=== PATIENT | female | born 1955 | race Caucasian/White ===

== ENCOUNTER 2020-10-28 13:47 | Inpatient (IN) ==
[2020-10-28] MEDS ORDERED: methylPREDNISolone 125 MG in 0.9 % Sodium Chloride 100 ML IVPB ONE (14:01)
[2020-10-28] MEDS ORDERED: 0.9 % Sodium Chloride 1,000 ML IVC ONE ×2 (14:01→16:27)
[2020-10-28] MEDS ORDERED: Ipratropium/Albuterol Neb 3 ML IH ONE (14:01)
[2020-10-28 14:32] LABS: Basophils % 0.3 %; Eosinophils # 0.1 K/mcL (0.0-0.6); Hematocrit 42.9 % (35.3-44.9); Hemoglobin 13.8 g/dL (11.5-15.4); Immature Granulocytes % 0.2 % (0-4); Lymphocytes # 0.8 K/mcL (0.6-4.6); Lymphocytes % 8.1 %; Mean Corpuscular HGB Conc 32.2 g/dL (31.6-35.5); Mean Corpuscular Hemoglobin 29.4 pg (28.0-33.3); Mean Corpuscular Volume 91.3 fL (83.0-100.0); Mean Platelet Volume 9.8 fL (9.4-12.4); Monocytes # 0.6 K/mcL (0.0-1.3); Monocytes % 6.8 %; Neutrophils # 7.9 K/mcL (1.6-8.9); Platelet Count 332 K/mcL (140-400); Red Cell Distribution Width 12.6 % (11.5-14.5); Segmented Neutrophils % 83.6 %; White Blood Count 9.4 K/mcL (4.3-11.1)
[2020-10-28] MEDS ORDERED: methylPREDNISolone 125 MG/2 ML VIAL IVP ONE (14:34)
[2020-10-28 14:42] LABS: VBG HCO3 28 mEq/L (21-27); VBG PCO2 46 mmHg (41-51); VBG PH 7.39 pH Units (7.32-7.42); VBG PO2 254 mmHg (25-50)
[2020-10-28] MEDS ORDERED: Isovue-370 500 ML BOTTLE IVP ONE (14:43)
[2020-10-28 14:53] LABS: BUN/Creatinine Ratio 38 (6-26); Blood Urea Nitrogen 20 mg/dL (8-23); Calcium 9.7 mg/dL (8.6-10.3); Carbon Dioxide 27 mEq/L (23-29); Chloride 102 mEq/L (98-107); Glucose 124 mg/dL (70-105); Osmolality,Calculated 294 (280-300); Sodium 140 mEq/L (136-145); Troponin I < 0.03 ng/mL (< 0.04); eGFR For African Americans > 60 (> 60); eGFR For Non-African Americans > 60 (> 60)
[2020-10-28 15:47] LABS: Adenovirus Not Detected (Not Detect); Bordetella Pertussis Not Detected (Not Detect); Chlamydophila pneumoniae Not Detected (Not Detect); Coronavirus 229E Not Detected (Not Detect); Coronavirus HKU1 Not Detected (Not Detect); Coronavirus NL63 Not Detected (Not Detect); Coronavirus OC43 Not Detected (Not Detect); Human Metapneumovirus Not Detected (Not Detect); Human Rhinovirus/Enterovirus Not Detected (Not Detect); Influenza A Subtype 2009 H1 Not Detected (Not Detect); Influenza B Not Detected (Not Detect); Mycoplasma pneumoniae Not Detected (Not Detect); Parainfluenza Virus 1 Not Detected (Not Detect); Parainfluenza Virus 2 Not Detected (Not Detect); Parainfluenza Virus 3 Not Detected (Not Detect); Parainfluenza Virus 4 Not Detected (Not Detect); Respiratory Syncytial Virus Not Detected (Not Detect); SARS-CoV-2 Not Detected (Not Detect)
[2020-10-28] MEDS ORDERED: Piperacillin/Tazobactam 3.375 GM in 0.9 % Sodium Chloride Mini Bag 100 ML IVPB ONE (16:27)
[2020-10-28] MEDS ORDERED: Naloxone 0.4 MG/ML INJ IVP PRN (16:33)
[2020-10-28] MEDS ORDERED: Acetaminophen 325 MG TABLET PO PRN (16:33)
[2020-10-28] MEDS ORDERED: Mag Hydrox/Al Hydrox/Simeth 30 ML UDC PO PRN (16:33)
[2020-10-28] MEDS ORDERED: Ondansetron 4 MG/2 ML VIAL IVP PRN (16:33)
[2020-10-28] MEDS ORDERED: MOM Conc 10 ML UD.LIQ PO PRN (16:33)
[2020-10-28] MEDS ORDERED: Azithromycin 500 MG in 0.9 % Sodium Chloride 250 ML IVPB SCH (17:00)
[2020-10-28] MEDS ORDERED: *HR* Metoprolol 5 MG/5 ML VIAL IVP PRN (17:41)
[2020-10-28] MEDS: Ipratropium/Albuterol Neb 3 ML IH SCH ×2 (17:54→23:12)
[2020-10-28] MEDS ORDERED: Perflutren Lipid Microsphere 1.3 ML in 0.9 % Sodium Chloride 8.7 ML IVP PRN (18:14)
[2020-10-28] MEDS ORDERED: Dextrose Gel 15 GM/37.5 ML TUBE PO PRN ×2 (18:15)
[2020-10-28] MEDS ORDERED: *HR* Dextrose 50 % in Water (Vial) 50 ML VIAL IVP PRN (18:15)
[2020-10-28] MEDS ORDERED: D5% in Water 1,000 ML IVC PRN (18:15)
[2020-10-28] MEDS: MethylPREDNISolone 40 MG/ML VIAL IVP SCH ×2 (19:01→23:54)
[2020-10-28] MEDS: Insulin LISPRO 300 UNITS/3 ML VIAL SUBQ SCH (20:00)
[2020-10-28] MEDS ORDERED: Melatonin 3 MG TABLET PO PRN (21:00)
[2020-10-28] MEDS: Piperacillin/Tazobactam 3.375 GM in 0.9 % Sodium Chloride Mini Bag 100 ML IVPB SCH (23:55)
[2020-10-29 03:14] LABS: Hematocrit 38.8 % (35.3-44.9); Hemoglobin 12.3 g/dL (11.5-15.4); Mean Corpuscular HGB Conc 31.7 g/dL (31.6-35.5); Mean Corpuscular Hemoglobin 30.2 pg (28.0-33.3); Mean Corpuscular Volume 95.3 fL (83.0-100.0); Mean Platelet Volume 9.5 fL (9.4-12.4); Platelet Count 259 K/mcL (140-400); Red Blood Count 4.07 M/mcL (3.82-4.97); Red Cell Distribution Width 12.7 % (11.5-14.5)
[2020-10-29 03:17] LABS: White Blood Count 2.3 K/mcL (4.3-11.1)
[2020-10-29 03:38] LABS: BUN/Creatinine Ratio 38 (6-26); Blood Urea Nitrogen 20 mg/dL (8-23); Carbon Dioxide 24 mEq/L (23-29); Chloride 104 mEq/L (98-107); Glucose 171 mg/dL (70-105); Magnesium 1.9 mg/dL (1.6-2.6); Osmolality,Calculated 297 (280-300); Potassium 4.3 mEq/L (3.5-5.1); Sodium 140 mEq/L (136-145); eGFR For African Americans > 60 (> 60); eGFR For Non-African Americans > 60 (> 60)
[2020-10-29] MEDS: Ipratropium/Albuterol Neb 3 ML IH SCH (04:20)
[2020-10-29] MEDS: MethylPREDNISolone 40 MG/ML VIAL IVP SCH ×3 (05:28→21:19)
[2020-10-29] MEDS: Insulin LISPRO 300 UNITS/3 ML VIAL SUBQ SCH ×4 (09:18→20:22)
[2020-10-29] MEDS: Piperacillin/Tazobactam 3.375 GM in 0.9 % Sodium Chloride Mini Bag 100 ML IVPB SCH ×2 (09:18→16:54)
[2020-10-29] MEDS: Aspirin Enteric Coated 325 MG Tablet PO SCH (09:46)
[2020-10-29] MEDS: Budesonide/Formoterol 160/4.5 1 PUFF INH IH SCH ×2 (09:54→19:57)
[2020-10-29] MEDS: Levalbuterol Neb 1.25 MG/3 ML IH SCH ×3 (09:55→22:02)
[2020-10-29 10:57] LABS: Triiodothyronine (T3) Total 0.88 ng/mL (0.87-1.78)
[2020-10-29 16:27] LABS: ABG Base Excess 3 mEq/L (-2 to 3); ABG HCO3 29 mEq/L (21-27); ABG Oxygen Saturation 97 % (95-98); ABG PCO2 49 mmHg (35-45); ABG PH 7.38 pH Units (7.32-7.45); ABG PO2 95 mmHg (85-104); ABG TCO2 31 mEq/L (20-26)
[2020-10-29] MEDS: *HR* Heparin 5,000 UNIT/ML VIAL SQ SCH (16:56)
[2020-10-29] MEDS: Doxycycline 100 MG CAPSULE PO SCH (16:56)
[2020-10-30] MEDS: Piperacillin/Tazobactam 3.375 GM in 0.9 % Sodium Chloride Mini Bag 100 ML IVPB SCH ×2 (00:08→08:23)
[2020-10-30] MEDS: Levalbuterol Neb 1.25 MG/3 ML IH SCH ×4 (03:40→21:13)
[2020-10-30 04:17] LABS: Hematocrit 34.7 % (35.3-44.9); Hemoglobin 10.9 g/dL (11.5-15.4); Immature Granulocytes % 0.4 % (0-4); Lymphocytes # 0.3 K/mcL (0.6-4.6); Lymphocytes % 3.4 %; Mean Corpuscular HGB Conc 31.4 g/dL (31.6-35.5); Mean Corpuscular Hemoglobin 29.1 pg (28.0-33.3); Mean Corpuscular Volume 92.5 fL (83.0-100.0); Mean Platelet Volume 9.9 fL (9.4-12.4); Monocytes # 0.1 K/mcL (0.0-1.3); Monocytes % 0.9 %; Neutrophils # 7.7 K/mcL (1.6-8.9); Platelet Count 262 K/mcL (140-400); Red Blood Count 3.75 M/mcL (3.82-4.97); Red Cell Distribution Width 12.9 % (11.5-14.5); Segmented Neutrophils % 95.3 %
[2020-10-30 04:18] LABS: White Blood Count 8.1 K/mcL (4.3-11.1)
[2020-10-30] MEDS: *HR* Heparin 5,000 UNIT/ML VIAL SQ SCH ×2 (05:03→16:45)
[2020-10-30] MEDS: MethylPREDNISolone 40 MG/ML VIAL IVP SCH ×2 (05:03→07:46)
[2020-10-30] MEDS: Doxycycline 100 MG CAPSULE PO SCH ×2 (05:04→16:45)
[2020-10-30] MEDS: Aspirin Enteric Coated 325 MG Tablet PO SCH (08:26)
[2020-10-30] MEDS: Insulin LISPRO 300 UNITS/3 ML VIAL SUBQ SCH ×4 (08:26→21:29)
[2020-10-30] MEDS: Budesonide/Formoterol 160/4.5 1 PUFF INH IH SCH ×2 (10:45→21:13)
[2020-10-30] MEDS ORDERED: hydrOXYzine pamoate 25 MG CAPSULE PO PRN (13:33)
[2020-10-30] MEDS ORDERED: MethylPREDNISolone 40 MG/ML VIAL IVP SCH (18:00)
[2020-10-31] MEDS: Levalbuterol Neb 1.25 MG/3 ML IH SCH ×2 (03:49→08:18)
[2020-10-31 05:04] LABS: Hematocrit 39.4 % (35.3-44.9); Immature Granulocytes % 0.3 % (0-4); Lymphocytes # 0.7 K/mcL (0.6-4.6); Lymphocytes % 11.2 %; Mean Corpuscular HGB Conc 31.7 g/dL (31.6-35.5); Mean Corpuscular Volume 94.5 fL (83.0-100.0); Monocytes # 0.4 K/mcL (0.0-1.3); Monocytes % 6.1 %; Neutrophils # 5.1 K/mcL (1.6-8.9); Platelet Count 269 K/mcL (140-400); Red Blood Count 4.17 M/mcL (3.82-4.97); Red Cell Distribution Width 12.9 % (11.5-14.5); Segmented Neutrophils % 82.4 %; White Blood Count 6.2 K/mcL (4.3-11.1)
[2020-10-31 05:06] LABS: Hemoglobin 12.5 g/dL (11.5-15.4)
[2020-10-31 05:19] LABS: % Iron Saturation 20 % (15-50); Iron 87 mcg/dL (50-170); Transferrin 305 mg/dL (203-362)
[2020-10-31] MEDS: Doxycycline 100 MG CAPSULE PO SCH (05:19)
[2020-10-31] MEDS: *HR* Heparin 5,000 UNIT/ML VIAL SQ SCH (05:24)
[2020-10-31 05:46] LABS: Vitamin B12 > 1500 pg/mL (250-1100)
[2020-10-31 07:12] VITALS: BP 155/99
[2020-10-31] MEDS: Insulin LISPRO 300 UNITS/3 ML VIAL SUBQ SCH (07:48)
[2020-10-31] MEDS: Aspirin Enteric Coated 325 MG Tablet PO SCH (07:58)
[2020-10-31] MEDS: Budesonide/Formoterol 160/4.5 1 PUFF INH IH SCH (08:18)
[2020-10-31] MEDS ORDERED: predniSONE 20 MG TABLET PO SCH (09:00)
== END 2020-10-31 10:52 | disposition home or self-care (01) | DRG 190 ==
LOC: 3BNU 13:47 → EMEROOARM 13:47 → SUATTDRO 17:15 → 3BNU 17:57
PROVIDERS: ADMIT Internal Medicine; ATTEND Internal Medicine

== ENCOUNTER 2020-11-20 16:28 | Inpatient (IN) ==
[2020-11-20] MEDS ORDERED: methylPREDNISolone 125 MG/2 ML VIAL IVP ONE (16:43)
[2020-11-20] MEDS ORDERED: Ipratropium/Albuterol Neb 3 ML IH ONE (16:43)
[2020-11-20 17:01] LABS: Basophils % 0.3 %; Eosinophils # 0.1 K/mcL (0.0-0.6); Eosinophils % 0.7 %; Hematocrit 39.9 % (35.3-44.9); Hemoglobin 12.7 g/dL (11.5-15.4); Immature Granulocytes % 0.1 % (0-4); Lymphocytes # 0.9 K/mcL (0.6-4.6); Lymphocytes % 12.6 %; Mean Corpuscular HGB Conc 31.8 g/dL (31.6-35.5); Mean Corpuscular Hemoglobin 28.9 pg (28.0-33.3); Mean Corpuscular Volume 90.9 fL (83.0-100.0); Mean Platelet Volume 9.6 fL (9.4-12.4); Monocytes # 0.6 K/mcL (0.0-1.3); Monocytes % 8.5 %; Neutrophils # 5.7 K/mcL (1.6-8.9); Platelet Count 319 K/mcL (140-400); Red Blood Count 4.39 M/mcL (3.82-4.97); Red Cell Distribution Width 12.8 % (11.5-14.5); Segmented Neutrophils % 77.8 %; White Blood Count 7.3 K/mcL (4.3-11.1)
[2020-11-20 17:12] LABS: VBG HCO3 28 mEq/L (21-27); VBG PCO2 49 mmHg (41-51); VBG PH 7.37 pH Units (7.32-7.42); VBG PO2 253 mmHg (25-50)
[2020-11-20 17:21] LABS: Alanine Aminotransferase 17 Units/L (7-52); Albumin 3.7 g/dL (3.5-5.7); Albumin/Globulin Ratio 1.2 (1.1-2.2); Alkaline Phosphatase 89 Units/L (34-104); Aspartate Amino Transferase 15 Units/L (13-39); BUN/Creatinine Ratio 46 (6-26); Bilirubin,Total 0.3 mg/dL (0.3-1.0); Blood Urea Nitrogen 19 mg/dL (8-23); Calcium 9.6 mg/dL (8.6-10.3); Carbon Dioxide 30 mEq/L (23-29); Chloride 102 mEq/L (98-107); Glucose 154 mg/dL (70-105); Osmolality,Calculated 299 (280-300); Potassium 4.2 mEq/L (3.5-5.1); Sodium 142 mEq/L (136-145); Total Protein 6.7 g/dL (6.4-8.9); eGFR For African Americans > 60 (> 60); eGFR For Non-African Americans > 60 (> 60)
[2020-11-20 17:22] LABS: Troponin I < 0.03 ng/mL (< 0.04)
[2020-11-20] MEDS ORDERED: Ondansetron 4 MG/2 ML VIAL IVP PRN (18:04)
[2020-11-20] MEDS ORDERED: Acetaminophen 325 MG TABLET PO PRN (18:04)
[2020-11-20] MEDS ORDERED: Naloxone 0.4 MG/ML INJ IVP PRN (18:04)
[2020-11-20] MEDS ORDERED: Isovue-370 500 ML BOTTLE IVP ONE (18:06)
[2020-11-20] MEDS ORDERED: Benzonatate 100 MG CAPSULE PO PRN (18:10)
[2020-11-20] MEDS ORDERED: Ipratropium/Albuterol Neb 3 ML IH PRN (18:10)
[2020-11-20] MEDS ORDERED: Dextrose Gel 15 GM/37.5 ML TUBE PO PRN ×2 (18:16)
[2020-11-20] MEDS ORDERED: *HR* Dextrose 50 % in Water (Vial) 50 ML VIAL IVP PRN (18:16)
[2020-11-20] MEDS ORDERED: D5% in Water 1,000 ML IVC PRN (18:16)
[2020-11-20] MEDS ORDERED: Azithromycin 500 MG in 0.9 % Sodium Chloride 250 ML IVPB SCH (19:00)
[2020-11-20] MEDS: *HR* Heparin 5,000 UNIT/ML VIAL SQ SCH (21:47)
[2020-11-20] MEDS: Ipratropium/Albuterol Neb 3 ML IH SCH (22:01)
[2020-11-20] MEDS: Budesonide/Formoterol 160/4.5 1 PUFF INH IH SCH (23:48)
[2020-11-21 03:15] LABS: Hematocrit 39.3 % (35.3-44.9); Immature Granulocytes % 0.5 % (0-4); Lymphocytes # 0.2 K/mcL (0.6-4.6); Lymphocytes % 5.4 %; Mean Corpuscular HGB Conc 30.5 g/dL (31.6-35.5); Mean Corpuscular Hemoglobin 28.6 pg (28.0-33.3); Mean Corpuscular Volume 93.8 fL (83.0-100.0); Mean Platelet Volume 9.6 fL (9.4-12.4); Monocytes % 0.8 %; Neutrophils # 3.6 K/mcL (1.6-8.9); Platelet Count 293 K/mcL (140-400); Red Blood Count 4.19 M/mcL (3.82-4.97); Red Cell Distribution Width 12.9 % (11.5-14.5); Segmented Neutrophils % 93.3 %; White Blood Count 3.9 K/mcL (4.3-11.1)
[2020-11-21 03:27] LABS: BUN/Creatinine Ratio 43 (6-26); Blood Urea Nitrogen 20 mg/dL (8-23); Calcium 9.2 mg/dL (8.6-10.3); Carbon Dioxide 30 mEq/L (23-29); Chloride 103 mEq/L (98-107); Glucose 214 mg/dL (70-105); Magnesium 1.8 mg/dL (1.6-2.6); Osmolality,Calculated 305 (280-300); Potassium 4.8 mEq/L (3.5-5.1); Sodium 143 mEq/L (136-145); eGFR For African Americans > 60 (> 60); eGFR For Non-African Americans > 60 (> 60)
[2020-11-21 03:48] LABS: Platelet Estimate Normal (Normal)
[2020-11-21] MEDS: Ipratropium/Albuterol Neb 3 ML IH SCH ×4 (03:52→15:04)
[2020-11-21] MEDS: *HR* Heparin 5,000 UNIT/ML VIAL SQ SCH ×2 (06:16→17:22)
[2020-11-21] MEDS: MethylPREDNISolone 40 MG/ML VIAL IVP SCH ×2 (06:16→16:58)
[2020-11-21] MEDS: Insulin LISPRO 300 UNITS/3 ML VIAL SUBQ SCH ×3 (08:53→16:57)
[2020-11-21] MEDS ORDERED: Budesonide/Formoterol 80/4.5 1 PUFF INH IH SCH (10:00)
[2020-11-21] MEDS: Budesonide/Formoterol 160/4.5 1 PUFF INH IH SCH ×2 (10:46→20:34)
[2020-11-21] MEDS ORDERED: *HR* LORazepam 0.5 MG TABLET PO PRN (13:11)
[2020-11-21] MEDS: Aspirin Enteric Coated 81 MG Tablet PO SCH (13:51)
[2020-11-21 14:40] LABS: Bilirubin,Urine Negative (Negative); Blood,Urine Large (Negative); Clarity,Urine Clear (Clear); Color,Urine Light-Orange (Yellow); Glucose,Urine (UA) 150 mg/dL (Normal); Ketones,Urine 100 mg/dL (Negative); Leukocyte Esterase,Urine Negative (Negative); Nitrite,Urine Negative (Negative); Protein,Urine 100 mg/dL (Neg-Trace); Specific Gravity,Urine > 1.030 (1.010-1.025); Urobilinogen,Urine Normal (Normal)
[2020-11-21 14:42] LABS: RBC,Urine TNTC per hpf (0-3); Squamous Epithelial Cell,Urine Present per hpf (None-Few); WBC,Urine Present per hpf (0-3)
[2020-11-21 14:43] LABS: Bacteria,Urine Present per hpf (None-Few)
[2020-11-21] MEDS: Ipratropium Neb 0.5 MG NEBULIZER IH SCH ×2 (20:34→23:18)
[2020-11-21] MEDS: Levalbuterol Neb 0.63 MG/3 ML IH SCH (20:34)
[2020-11-21] MEDS ORDERED: Azithromycin 500 MG in 0.9 % Sodium Chloride 250 ML IVPB SCH (23:00)
[2020-11-21 23:49] LABS: Creatinine,Urine 127 mg/dL; Microalbum/Creatinine Ratio,Ur 187 mcg/mg (Less than 30); Microalbumin,Urine 237 mg/L
[2020-11-22 01:59] LABS: Basophils % 0.1 %; Hematocrit 39.9 % (35.3-44.9); Hemoglobin 12.5 g/dL (11.5-15.4); Immature Granulocytes % 0.5 % (0-4); Lymphocytes # 0.3 K/mcL (0.6-4.6); Lymphocytes % 4.3 %; Mean Corpuscular HGB Conc 31.3 g/dL (31.6-35.5); Mean Corpuscular Hemoglobin 29.3 pg (28.0-33.3); Mean Corpuscular Volume 93.4 fL (83.0-100.0); Mean Platelet Volume 9.5 fL (9.4-12.4); Monocytes # 0.2 K/mcL (0.0-1.3); Monocytes % 2.3 %; Platelet Count 352 K/mcL (140-400); Red Blood Count 4.27 M/mcL (3.82-4.97); Segmented Neutrophils % 92.8 %
[2020-11-22 02:00] LABS: Neutrophils # 7.2 K/mcL (1.6-8.9); White Blood Count 7.7 K/mcL (4.3-11.1)
[2020-11-22 02:18] LABS: BUN/Creatinine Ratio 53 (6-26); Blood Urea Nitrogen 27 mg/dL (8-23); Calcium 9.7 mg/dL (8.6-10.3); Carbon Dioxide 32 mEq/L (23-29); Chloride 103 mEq/L (98-107); Glucose 169 mg/dL (70-105); Osmolality,Calculated 301 (280-300); Potassium 4.9 mEq/L (3.5-5.1); Sodium 141 mEq/L (136-145); eGFR For African Americans > 60 (> 60); eGFR For Non-African Americans > 60 (> 60)
[2020-11-22] MEDS: Ipratropium Neb 0.5 MG NEBULIZER IH SCH ×5 (03:58→22:01)
[2020-11-22] MEDS: Levalbuterol Neb 0.63 MG/3 ML IH SCH ×4 (03:58→22:01)
[2020-11-22] MEDS: MethylPREDNISolone 40 MG/ML VIAL IVP SCH ×2 (05:24→16:35)
[2020-11-22] MEDS: Budesonide/Formoterol 160/4.5 1 PUFF INH IH SCH ×2 (07:30→22:00)
[2020-11-22] MEDS: Insulin LISPRO 300 UNITS/3 ML VIAL SUBQ SCH ×3 (08:11→16:23)
[2020-11-22] MEDS: Aspirin Enteric Coated 81 MG Tablet PO SCH (12:36)
[2020-11-23] MEDS: MethylPREDNISolone 40 MG/ML VIAL IVP SCH ×4 (01:26→23:05)
[2020-11-23] MEDS: Ipratropium Neb 0.5 MG NEBULIZER IH SCH ×4 (03:48→21:58)
[2020-11-23] MEDS: Levalbuterol Neb 0.63 MG/3 ML IH SCH ×4 (03:48→21:58)
[2020-11-23 06:19] LABS: Hematocrit 38.1 % (35.3-44.9); Hemoglobin 12.2 g/dL (11.5-15.4); Immature Granulocytes % 0.4 % (0-4); Lymphocytes # 0.2 K/mcL (0.6-4.6); Lymphocytes % 3.2 %; Mean Corpuscular Hemoglobin 29.3 pg (28.0-33.3); Mean Corpuscular Volume 91.6 fL (83.0-100.0); Mean Platelet Volume 9.4 fL (9.4-12.4); Monocytes # 0.2 K/mcL (0.0-1.3); Monocytes % 2.3 %; Platelet Count 348 K/mcL (140-400); Red Blood Count 4.16 M/mcL (3.82-4.97); Red Cell Distribution Width 13.1 % (11.5-14.5); Segmented Neutrophils % 94.1 %; White Blood Count 7.5 K/mcL (4.3-11.1)
[2020-11-23 06:38] LABS: BUN/Creatinine Ratio 61 (6-26); Blood Urea Nitrogen 25 mg/dL (8-23); Calcium 9.4 mg/dL (8.6-10.3); Carbon Dioxide 32 mEq/L (23-29); Chloride 100 mEq/L (98-107); Glucose 172 mg/dL (70-105); Osmolality,Calculated 300 (280-300); Potassium 4.3 mEq/L (3.5-5.1); Sodium 141 mEq/L (136-145); eGFR For African Americans > 60 (> 60); eGFR For Non-African Americans > 60 (> 60)
[2020-11-23] MEDS: Insulin LISPRO 300 UNITS/3 ML VIAL SUBQ SCH ×3 (08:02→16:03)
[2020-11-23] MEDS: Budesonide/Formoterol 160/4.5 1 PUFF INH IH SCH ×2 (10:13→21:58)
[2020-11-23] MEDS: Aspirin Enteric Coated 81 MG Tablet PO SCH (11:39)
[2020-11-23] MEDS ORDERED: Azithromycin 250 MG TABLET PO SCH (16:00)
[2020-11-23] MEDS: Azithromycin 250 MG TABLET PO SCH (21:45)
[2020-11-23] MEDS ORDERED: hydrALAZINE 10 MG TABLET PO ONE (22:53)
[2020-11-24 01:28] LABS: Basophils % 0.2 %; Hematocrit 38.1 % (35.3-44.9); Hemoglobin 12.3 g/dL (11.5-15.4); Immature Granulocytes % 0.6 % (0-4); Lymphocytes # 0.2 K/mcL (0.6-4.6); Lymphocytes % 3.5 %; Mean Corpuscular HGB Conc 32.3 g/dL (31.6-35.5); Mean Corpuscular Hemoglobin 29.8 pg (28.0-33.3); Mean Corpuscular Volume 92.3 fL (83.0-100.0); Mean Platelet Volume 9.3 fL (9.4-12.4); Monocytes # 0.2 K/mcL (0.0-1.3); Monocytes % 2.6 %; Neutrophils # 6.2 K/mcL (1.6-8.9); Platelet Count 365 K/mcL (140-400); Red Blood Count 4.13 M/mcL (3.82-4.97); Segmented Neutrophils % 93.1 %; White Blood Count 6.6 K/mcL (4.3-11.1)
[2020-11-24 01:47] LABS: BUN/Creatinine Ratio 58 (6-26); Blood Urea Nitrogen 26 mg/dL (8-23); Calcium 9.3 mg/dL (8.6-10.3); Carbon Dioxide 33 mEq/L (23-29); Chloride 101 mEq/L (98-107); Glucose 169 mg/dL (70-105); Osmolality,Calculated 301 (280-300); Potassium 4.7 mEq/L (3.5-5.1); Sodium 141 mEq/L (136-145); eGFR For African Americans > 60 (> 60); eGFR For Non-African Americans > 60 (> 60)
[2020-11-24] MEDS: Levalbuterol Neb 0.63 MG/3 ML IH SCH ×4 (03:51→21:51)
[2020-11-24] MEDS: Ipratropium Neb 0.5 MG NEBULIZER IH SCH ×4 (03:51→21:51)
[2020-11-24] MEDS: Insulin LISPRO 300 UNITS/3 ML VIAL SUBQ SCH ×3 (08:26→17:19)
[2020-11-24] MEDS: MethylPREDNISolone 40 MG/ML VIAL IVP SCH ×2 (08:26→15:19)
[2020-11-24] MEDS: Budesonide/Formoterol 160/4.5 1 PUFF INH IH SCH ×2 (10:35→21:51)
[2020-11-24] MEDS: Aspirin Enteric Coated 81 MG Tablet PO SCH (15:19)
[2020-11-24] MEDS: Azithromycin 250 MG TABLET PO SCH (22:06)
[2020-11-25] MEDS: MethylPREDNISolone 40 MG/ML VIAL IVP SCH ×3 (01:53→15:50)
[2020-11-25] MEDS: Levalbuterol Neb 0.63 MG/3 ML IH SCH ×4 (03:13→22:12)
[2020-11-25] MEDS: Ipratropium Neb 0.5 MG NEBULIZER IH SCH ×4 (03:13→22:12)
[2020-11-25 03:25] LABS: Hematocrit 39.7 % (35.3-44.9); Hemoglobin 12.3 g/dL (11.5-15.4); Immature Granulocytes % 0.3 % (0-4); Lymphocytes # 0.4 K/mcL (0.6-4.6); Lymphocytes % 5.9 %; Mean Corpuscular Hemoglobin 28.3 pg (28.0-33.3); Mean Corpuscular Volume 91.5 fL (83.0-100.0); Mean Platelet Volume 9.6 fL (9.4-12.4); Monocytes # 0.4 K/mcL (0.0-1.3); Monocytes % 6.3 %; Neutrophils # 5.7 K/mcL (1.6-8.9); Platelet Count 416 K/mcL (140-400); Red Blood Count 4.34 M/mcL (3.82-4.97); Red Cell Distribution Width 13.1 % (11.5-14.5); Segmented Neutrophils % 87.5 %; White Blood Count 6.5 K/mcL (4.3-11.1)
[2020-11-25 03:37] LABS: BUN/Creatinine Ratio 61 (6-26); Blood Urea Nitrogen 27 mg/dL (8-23); Calcium 9.1 mg/dL (8.6-10.3); Carbon Dioxide 32 mEq/L (23-29); Chloride 100 mEq/L (98-107); Glucose 143 mg/dL (70-105); Osmolality,Calculated 298 (280-300); Potassium 4.2 mEq/L (3.5-5.1); Sodium 140 mEq/L (136-145); eGFR For African Americans > 60 (> 60); eGFR For Non-African Americans > 60 (> 60)
[2020-11-25] MEDS: Insulin LISPRO 300 UNITS/3 ML VIAL SUBQ SCH ×3 (07:51→15:55)
[2020-11-25] MEDS ORDERED: Lidocaine -MPF 2% 2 ML VIAL ONE (08:41)
[2020-11-25] MEDS ORDERED: *HR* Propofol 200 MG/20 ML VIAL IVP ONE (08:42)
[2020-11-25] MEDS ORDERED: Ondansetron 4 MG/2 ML VIAL ONE (08:43)
[2020-11-25] MEDS ORDERED: *HR* Succinylcholine 200 MG/10 ML VIAL IVP ONE (08:44)
[2020-11-25] MEDS ORDERED: Ipratropium/Albuterol Neb 3 ML ONE (08:47)
[2020-11-25] MEDS: Budesonide/Formoterol 160/4.5 1 PUFF INH IH SCH ×2 (10:44→22:12)
[2020-11-25 11:23] LABS: Source of Body Fluid Right Lower Lobe
[2020-11-25] MEDS: GuaiFENesin Liq 200 MG/10 ML UDC PO SCH ×2 (12:00→15:50)
[2020-11-25 15:07] LABS: Appearance of Body Fluid Hazy (Clear); Volume of Body Fluid 13 mL
[2020-11-25] MEDS: Aspirin Enteric Coated 81 MG Tablet PO SCH (15:50)
[2020-11-25] MEDS: Azithromycin 250 MG TABLET PO SCH (22:27)
[2020-11-26] MEDS: GuaiFENesin Liq 200 MG/10 ML UDC PO SCH ×4 (00:29→17:20)
[2020-11-26] MEDS: MethylPREDNISolone 40 MG/ML VIAL IVP SCH ×3 (00:31→17:20)
[2020-11-26] MEDS: Ipratropium Neb 0.5 MG NEBULIZER IH SCH ×4 (03:15→22:48)
[2020-11-26] MEDS: Levalbuterol Neb 0.63 MG/3 ML IH SCH ×4 (03:15→22:48)
[2020-11-26 04:54] LABS: Hemoglobin 12.7 g/dL (11.5-15.4); Immature Granulocytes % 0.4 % (0-4); Lymphocytes # 0.2 K/mcL (0.6-4.6); Lymphocytes % 2.6 %; Mean Corpuscular HGB Conc 31.8 g/dL (31.6-35.5); Mean Corpuscular Hemoglobin 28.8 pg (28.0-33.3); Mean Corpuscular Volume 90.7 fL (83.0-100.0); Mean Platelet Volume 9.5 fL (9.4-12.4); Monocytes # 0.3 K/mcL (0.0-1.3); Monocytes % 3.8 %; Neutrophils # 6.8 K/mcL (1.6-8.9); Platelet Count 453 K/mcL (140-400); Red Blood Count 4.41 M/mcL (3.82-4.97); Red Cell Distribution Width 13.1 % (11.5-14.5); Segmented Neutrophils % 93.2 %; White Blood Count 7.3 K/mcL (4.3-11.1)
[2020-11-26 05:13] LABS: BUN/Creatinine Ratio 70 (6-26); Blood Urea Nitrogen 33 mg/dL (8-23); Calcium 9.3 mg/dL (8.6-10.3); Carbon Dioxide 33 mEq/L (23-29); Chloride 98 mEq/L (98-107); Glucose 269 mg/dL (70-105); Osmolality,Calculated 303 (280-300); Potassium 4.5 mEq/L (3.5-5.1); Sodium 138 mEq/L (136-145); eGFR For African Americans > 60 (> 60); eGFR For Non-African Americans > 60 (> 60)
[2020-11-26 05:24] LABS: Platelet Estimate Normal (Normal)
[2020-11-26] MEDS: Insulin LISPRO 300 UNITS/3 ML VIAL SUBQ SCH ×3 (08:02→17:20)
[2020-11-26] MEDS: Budesonide/Formoterol 160/4.5 1 PUFF INH IH SCH ×2 (10:15→22:48)
[2020-11-26] MEDS: Aspirin Enteric Coated 81 MG Tablet PO SCH (12:16)
[2020-11-26] MEDS: Piperacillin/Tazobactam 3.375 GM in 0.9 % Sodium Chloride Mini Bag 100 ML IVPB SCH (20:03)
[2020-11-26] MEDS: Azithromycin 250 MG TABLET PO SCH (20:08)
[2020-11-27] MEDS: Piperacillin/Tazobactam 3.375 GM in 0.9 % Sodium Chloride Mini Bag 100 ML IVPB SCH ×3 (01:09→18:37)
[2020-11-27] MEDS: GuaiFENesin Liq 200 MG/10 ML UDC PO SCH ×4 (01:10→17:22)
[2020-11-27 01:44] LABS: Hematocrit 40.3 % (35.3-44.9); Hemoglobin 12.7 g/dL (11.5-15.4); Immature Granulocytes % 0.2 % (0-4); Lymphocytes # 0.2 K/mcL (0.6-4.6); Lymphocytes % 2.7 %; Mean Corpuscular HGB Conc 31.5 g/dL (31.6-35.5); Mean Corpuscular Hemoglobin 28.7 pg (28.0-33.3); Mean Platelet Volume 9.4 fL (9.4-12.4); Monocytes # 0.3 K/mcL (0.0-1.3); Monocytes % 3.6 %; Platelet Count 450 K/mcL (140-400); Red Blood Count 4.43 M/mcL (3.82-4.97); Red Cell Distribution Width 13.2 % (11.5-14.5); Segmented Neutrophils % 93.5 %; White Blood Count 8.6 K/mcL (4.3-11.1)
[2020-11-27 02:06] LABS: BUN/Creatinine Ratio 60 (6-26); Blood Urea Nitrogen 30 mg/dL (8-23); Calcium 9.4 mg/dL (8.6-10.3); Carbon Dioxide 31 mEq/L (23-29); Chloride 100 mEq/L (98-107); Glucose 257 mg/dL (70-105); Osmolality,Calculated 301 (280-300); Potassium 4.3 mEq/L (3.5-5.1); Sodium 138 mEq/L (136-145); eGFR For African Americans > 60 (> 60); eGFR For Non-African Americans > 60 (> 60)
[2020-11-27] MEDS: Levalbuterol Neb 0.63 MG/3 ML IH SCH ×4 (04:21→22:49)
[2020-11-27] MEDS: Ipratropium Neb 0.5 MG NEBULIZER IH SCH ×4 (04:21→22:49)
[2020-11-27] MEDS: MethylPREDNISolone 40 MG/ML VIAL IVP SCH ×2 (05:24→18:37)
[2020-11-27] MEDS: Aspirin Enteric Coated 81 MG Tablet PO SCH (08:00)
[2020-11-27] MEDS: Insulin LISPRO 300 UNITS/3 ML VIAL SUBQ SCH ×3 (08:04→17:16)
[2020-11-27] MEDS: Budesonide/Formoterol 160/4.5 1 PUFF INH IH SCH ×2 (09:31→22:49)
[2020-11-27] MEDS: Azithromycin 250 MG TABLET PO SCH (19:54)
[2020-11-28] MEDS: GuaiFENesin Liq 200 MG/10 ML UDC PO SCH ×5 (01:20→23:57)
[2020-11-28] MEDS: Piperacillin/Tazobactam 3.375 GM in 0.9 % Sodium Chloride Mini Bag 100 ML IVPB SCH ×2 (01:20→08:19)
[2020-11-28] MEDS: Ipratropium Neb 0.5 MG NEBULIZER IH SCH ×4 (04:01→22:34)
[2020-11-28] MEDS: Levalbuterol Neb 0.63 MG/3 ML IH SCH ×4 (04:01→22:34)
[2020-11-28 04:42] LABS: Influenza A PCR Body Fluid NOT DETECTED; Influenza B PCR Body Fluid NOT DETECTED; RVP Body Fluid Source BAL; RVP Body Fluid Source BRONCHIAL WASH
[2020-11-28] MEDS: MethylPREDNISolone 40 MG/ML VIAL IVP SCH ×2 (06:12→17:13)
[2020-11-28] MEDS: Insulin LISPRO 300 UNITS/3 ML VIAL SUBQ SCH ×3 (08:10→17:05)
[2020-11-28] MEDS: Aspirin Enteric Coated 81 MG Tablet PO SCH (08:17)
[2020-11-28] MEDS: Budesonide/Formoterol 160/4.5 1 PUFF INH IH SCH ×2 (09:28→22:34)
[2020-11-28 12:21] LABS: RSV PCR Body Fluid NOT DETECTED
[2020-11-28] MEDS: Cefepime HCl 2,000 MG in 0.9 % Sodium Chloride Mini Bag 100 ML IVPB SCH ×2 (15:31→23:57)
[2020-11-29 03:29] LABS: Basophils % 0.2 %; Hematocrit 36.9 % (35.3-44.9); Hemoglobin 11.6 g/dL (11.5-15.4); Immature Granulocytes % 0.5 % (0-4); Lymphocytes # 0.3 K/mcL (0.6-4.6); Lymphocytes % 4.9 %; Mean Corpuscular HGB Conc 31.4 g/dL (31.6-35.5); Mean Corpuscular Volume 92.3 fL (83.0-100.0); Mean Platelet Volume 9.5 fL (9.4-12.4); Monocytes # 0.3 K/mcL (0.0-1.3); Monocytes % 5.8 %; Neutrophils # 5.2 K/mcL (1.6-8.9); Platelet Count 391 K/mcL (140-400); Red Cell Distribution Width 13.3 % (11.5-14.5); Segmented Neutrophils % 88.6 %; White Blood Count 5.9 K/mcL (4.3-11.1)
[2020-11-29 03:45] LABS: BUN/Creatinine Ratio 62 (6-26); Blood Urea Nitrogen 29 mg/dL (8-23); Calcium 8.8 mg/dL (8.6-10.3); Carbon Dioxide 34 mEq/L (23-29); Chloride 101 mEq/L (98-107); Glucose 319 mg/dL (70-105); Osmolality,Calculated 304 (280-300); Potassium 4.6 mEq/L (3.5-5.1); Sodium 138 mEq/L (136-145); eGFR For African Americans > 60 (> 60); eGFR For Non-African Americans > 60 (> 60)
[2020-11-29] MEDS: Levalbuterol Neb 0.63 MG/3 ML IH SCH ×2 (03:58→11:19)
[2020-11-29] MEDS: Ipratropium Neb 0.5 MG NEBULIZER IH SCH ×2 (03:58→11:19)
[2020-11-29] MEDS: GuaiFENesin Liq 200 MG/10 ML UDC PO SCH (05:52)
[2020-11-29 07:02] VITALS: BP 125/87
[2020-11-29] MEDS: Insulin LISPRO 300 UNITS/3 ML VIAL SUBQ SCH (08:08)
[2020-11-29] MEDS: Cefepime HCl 2,000 MG in 0.9 % Sodium Chloride Mini Bag 100 ML IVPB SCH (08:08)
[2020-11-29] MEDS: Aspirin Enteric Coated 81 MG Tablet PO SCH (08:09)
[2020-11-29] MEDS ORDERED: predniSONE 20 MG TABLET PO SCH (09:00)
[2020-11-29] MEDS: Budesonide/Formoterol 160/4.5 1 PUFF INH IH SCH (11:18)
[2020-11-29 18:39] LABS: HSV Source BAL; HSV Source BRONCH WASH
== END 2020-11-29 12:27 | disposition home health service (06) | DRG 177 ==
LOC: EMEROOARM 16:28 → 2NENU 16:28 → SUATTDRO 18:15 → 2NENU 19:55 → SUATTDRO 11-22 09:38
PROVIDERS: ADMIT Internal Medicine; ATTEND Internal Medicine

== ENCOUNTER 2021-01-11 12:03 | Inpatient (IN) ==
[2021-01-11] MEDS ORDERED: methylPREDNISolone 125 MG/2 ML VIAL IVP ONE (12:32)
[2021-01-11] MEDS ORDERED: Ipratropium/Albuterol Neb 3 ML IH ONE (12:32)
[2021-01-11] MEDS ORDERED: Isovue-370 500 ML BOTTLE IVP ONE (12:38)
[2021-01-11] MEDS ORDERED: 0.9 % Sodium Chloride 1,000 ML IVC SCH (12:45)
[2021-01-11 13:09] LABS: Basophils # 0.1 K/mcL (0.0-0.2); Basophils % 0.4 %; Eosinophils % 0.1 %; Hematocrit 42.1 % (35.3-44.9); Immature Granulocytes % 0.6 % (0-4); Lymphocytes # 0.7 K/mcL (0.6-4.6); Lymphocytes % 4.6 %; Mean Corpuscular HGB Conc 30.9 g/dL (31.6-35.5); Mean Corpuscular Hemoglobin 28.4 pg (28.0-33.3); Mean Corpuscular Volume 91.9 fL (83.0-100.0); Mean Platelet Volume 9.8 fL (9.4-12.4); Monocytes # 0.8 K/mcL (0.0-1.3); Monocytes % 5.5 %; Neutrophils # 12.7 K/mcL (1.6-8.9); Platelet Count 505 K/mcL (140-400); Red Blood Count 4.58 M/mcL (3.82-4.97); Red Cell Distribution Width 15.8 % (11.5-14.5); Segmented Neutrophils % 88.8 %; White Blood Count 14.3 K/mcL (4.3-11.1)
[2021-01-11] MEDS ORDERED: Cefepime HCl 1,000 MG in 0.9 % Sodium Chloride Mini Bag 100 ML IVPB ONE (13:18)
[2021-01-11] MEDS ORDERED: 0.9 % Sodium Chloride 1,000 ML IVC ONE (13:19)
[2021-01-11 13:28] LABS: BUN/Creatinine Ratio 46 (6-26); Blood Urea Nitrogen 23 mg/dL (8-23); Calcium 9.5 mg/dL (8.6-10.3); Carbon Dioxide 29 mEq/L (23-29); Chloride 101 mEq/L (98-107); Glucose 291 mg/dL (70-105); Osmolality,Calculated 302 (280-300); Sodium 139 mEq/L (136-145); Troponin I < 0.03 ng/mL (< 0.04); eGFR For African Americans > 60 (> 60); eGFR For Non-African Americans > 60 (> 60)
[2021-01-11 15:03] LABS: Bilirubin,Urine Negative (Negative); Blood,Urine Large (Negative); Calcium Oxalate Crystals,Urine Present per hpf; Clarity,Urine Turbid (Clear); Color,Urine Yellow (Yellow); Glucose,Urine (UA) Normal (Normal); Ketones,Urine Negative (Negative); Leukocyte Esterase,Urine Negative (Negative); Mucus,Urine Few per lpf (None-Few); Nitrite,Urine Negative (Negative); PH,Urine 6.5 pH Units (5.0-8.0); Protein,Urine 50 mg/dL (Neg-Trace); RBC,Urine TNTC per hpf (0-3); Specific Gravity,Urine 1.019 (1.010-1.025); Squamous Epithelial Cell,Urine Few per hpf (None-Few); Urobilinogen,Urine Normal (Normal); WBC,Urine 30-50 per hpf (0-3)
[2021-01-11] MEDS ORDERED: Naloxone 0.4 MG/ML INJ IVP PRN (15:48)
[2021-01-11] MEDS ORDERED: Ondansetron 4 MG/2 ML VIAL IVP PRN (16:01)
[2021-01-11] MEDS ORDERED: Ipratropium/Albuterol Neb 3 ML IH PRN (16:02)
[2021-01-11 16:42] LABS: Adenovirus Not Detected (Not Detect); Bordetella Pertussis Not Detected (Not Detect); Chlamydophila pneumoniae Not Detected (Not Detect); Coronavirus 229E Not Detected (Not Detect); Coronavirus HKU1 Not Detected (Not Detect); Coronavirus NL63 Not Detected (Not Detect); Coronavirus OC43 Not Detected (Not Detect); Human Metapneumovirus Not Detected (Not Detect); Human Rhinovirus/Enterovirus Not Detected (Not Detect); Influenza A Subtype 2009 H1 Not Detected (Not Detect); Influenza B Not Detected (Not Detect); Mycoplasma pneumoniae Not Detected (Not Detect); Parainfluenza Virus 1 Not Detected (Not Detect); Parainfluenza Virus 2 Not Detected (Not Detect); Parainfluenza Virus 3 Not Detected (Not Detect); Parainfluenza Virus 4 Not Detected (Not Detect); Respiratory Syncytial Virus Not Detected (Not Detect); SARS-CoV-2 Not Detected (Not Detect)
[2021-01-11 16:46] LABS: C-Reactive Protein 7 mg/L (Less than 10)
[2021-01-11] MEDS: *HR* Heparin 5,000 UNIT/ML VIAL SQ SCH (18:43)
[2021-01-11] MEDS: Azithromycin 500 MG in 0.9 % Sodium Chloride 250 ML IVPB SCH (18:43)
[2021-01-11] MEDS ORDERED: *HR* Dextrose 50 % in Water (Vial) 50 ML VIAL IVP PRN (19:33)
[2021-01-11] MEDS ORDERED: Dextrose Gel 15 GM/37.5 ML TUBE PO PRN ×2 (19:33)
[2021-01-11] MEDS ORDERED: D5% in Water 1,000 ML IVC PRN (19:33)
[2021-01-11] MEDS ORDERED: GuaiFENesin Liq 200 MG/10 ML UDC PO PRN (19:34)
[2021-01-11] MEDS: Budesonide/Formoterol 160/4.5 1 PUFF INH IH SCH (19:43)
[2021-01-11] MEDS: Ipratropium/Albuterol Neb 3 ML IH SCH (19:44)
[2021-01-11] MEDS: Insulin LISPRO 300 UNITS/3 ML VIAL SUBQ SCH (20:29)
[2021-01-11 20:34] LABS: Estimated Average Glucose 189 mg/dl; Hemoglobin A1C 8.2 %
[2021-01-12] MEDS: Ipratropium/Albuterol Neb 3 ML IH SCH ×7 (00:47→23:40)
[2021-01-12] MEDS: MethylPREDNISolone 40 MG/ML VIAL IVP SCH ×4 (00:57→23:58)
[2021-01-12] MEDS: Cefepime HCl 2,000 MG in Water for inj. (sterile) 20 ML IVP SCH ×2 (01:05→07:47)
[2021-01-12 03:04] LABS: Basophils % 0.1 %; Hemoglobin 11.5 g/dL (11.5-15.4); Immature Granulocytes % 0.5 % (0-4); Lymphocytes # 0.3 K/mcL (0.6-4.6); Lymphocytes % 3.7 %; Mean Corpuscular HGB Conc 31.9 g/dL (31.6-35.5); Mean Corpuscular Hemoglobin 28.9 pg (28.0-33.3); Mean Corpuscular Volume 90.5 fL (83.0-100.0); Mean Platelet Volume 9.7 fL (9.4-12.4); Monocytes # 0.2 K/mcL (0.0-1.3); Monocytes % 1.6 %; Neutrophils # 8.7 K/mcL (1.6-8.9); Platelet Count 406 K/mcL (140-400); Red Blood Count 3.98 M/mcL (3.82-4.97); Red Cell Distribution Width 15.5 % (11.5-14.5); Segmented Neutrophils % 94.1 %; White Blood Count 9.2 K/mcL (4.3-11.1)
[2021-01-12 03:26] LABS: BUN/Creatinine Ratio 69 (6-26); Blood Urea Nitrogen 22 mg/dL (8-23); C-Reactive Protein 8 mg/L (Less than 10); Carbon Dioxide 28 mEq/L (23-29); Chloride 105 mEq/L (98-107); Glucose 100 mg/dL (70-105); Osmolality,Calculated 295 (280-300); Potassium 4.2 mEq/L (3.5-5.1); Sodium 141 mEq/L (136-145); eGFR For African Americans > 60 (> 60); eGFR For Non-African Americans > 60 (> 60)
[2021-01-12] MEDS: *HR* Heparin 5,000 UNIT/ML VIAL SQ SCH ×2 (06:14→16:09)
[2021-01-12] MEDS: Insulin LISPRO 300 UNITS/3 ML VIAL SUBQ SCH ×3 (07:30→16:08)
[2021-01-12] MEDS: Aspirin Enteric Coated 81 MG Tablet PO SCH (07:47)
[2021-01-12] MEDS: Budesonide/Formoterol 160/4.5 1 PUFF INH IH SCH ×2 (08:14→19:50)
[2021-01-12] MEDS: Azithromycin 500 MG in 0.9 % Sodium Chloride 250 ML IVPB SCH (16:09)
[2021-01-13] MEDS: Ipratropium/Albuterol Neb 3 ML IH SCH ×6 (03:48→23:46)
[2021-01-13] MEDS: *HR* Heparin 5,000 UNIT/ML VIAL SQ SCH ×2 (05:34→16:28)
[2021-01-13] MEDS: Budesonide/Formoterol 160/4.5 1 PUFF INH IH SCH ×2 (07:26→19:35)
[2021-01-13] MEDS: Insulin LISPRO 300 UNITS/3 ML VIAL SUBQ SCH ×3 (08:22→16:27)
[2021-01-13] MEDS: predniSONE 20 MG TABLET PO SCH (08:22)
[2021-01-13] MEDS: Aspirin Enteric Coated 81 MG Tablet PO SCH (08:22)
[2021-01-13] MEDS: Azithromycin 500 MG in 0.9 % Sodium Chloride 250 ML IVPB SCH (16:27)
[2021-01-14] MEDS: Ipratropium/Albuterol Neb 3 ML IH SCH ×4 (03:31→20:13)
[2021-01-14] MEDS: *HR* Heparin 5,000 UNIT/ML VIAL SQ SCH ×2 (05:21→18:30)
[2021-01-14] MEDS: Budesonide/Formoterol 160/4.5 1 PUFF INH IH SCH ×2 (07:33→20:13)
[2021-01-14] MEDS: Insulin LISPRO 300 UNITS/3 ML VIAL SUBQ SCH ×3 (09:23→18:29)
[2021-01-14] MEDS: Aspirin Enteric Coated 81 MG Tablet PO SCH (09:32)
[2021-01-14] MEDS: predniSONE 20 MG TABLET PO SCH (09:32)
[2021-01-14] MEDS ORDERED: Ipratropium/Albuterol Neb 3 ML IH SCH (16:00)
[2021-01-14] MEDS: Azithromycin 500 MG in 0.9 % Sodium Chloride 250 ML IVPB SCH (18:29)
[2021-01-15] MEDS: Ipratropium/Albuterol Neb 3 ML IH SCH ×4 (00:03→10:58)
[2021-01-15 03:27] LABS: BUN/Creatinine Ratio 54 (6-26); Blood Urea Nitrogen 22 mg/dL (8-23); Calcium 8.9 mg/dL (8.6-10.3); Carbon Dioxide 34 mEq/L (23-29); Chloride 101 mEq/L (98-107); Glucose 85 mg/dL (70-105); Osmolality,Calculated 293 (280-300); Potassium 3.9 mEq/L (3.5-5.1); Sodium 140 mEq/L (136-145); eGFR For African Americans > 60 (> 60); eGFR For Non-African Americans > 60 (> 60)
[2021-01-15] MEDS: *HR* Heparin 5,000 UNIT/ML VIAL SQ SCH (06:00)
[2021-01-15] MEDS: Budesonide/Formoterol 160/4.5 1 PUFF INH IH SCH (07:15)
[2021-01-15] MEDS: Insulin LISPRO 300 UNITS/3 ML VIAL SUBQ SCH (08:13)
[2021-01-15] MEDS: Aspirin Enteric Coated 81 MG Tablet PO SCH (08:16)
[2021-01-15] MEDS: predniSONE 20 MG TABLET PO SCH (08:16)
[2021-01-15 11:20] VITALS: BP 130/84
== END 2021-01-15 15:10 | disposition home or self-care (01) | DRG 193 ==
LOC: 2ANU 12:03 → EMEROOARM 12:03 → SUATTDRO 15:59 → 2ANU 18:10
PROVIDERS: ADMIT Internal Medicine; ATTEND Student in an Organized Health Care Education/Training Program

== ENCOUNTER 2021-03-26 12:16 | Inpatient (IN) ==
[2021-03-26] MEDS ORDERED: methylPREDNISolone 125 MG/2 ML VIAL IVP ONE (12:28)
[2021-03-26] MEDS ORDERED: Ipratropium/Albuterol Neb 3 ML IH ONE (12:28)
[2021-03-26] MEDS ORDERED: Azithromycin 500 MG in 0.9 % Sodium Chloride 250 ML IVPB ONE (12:28)
[2021-03-26 12:39] LABS: Basophils % 0.1 %; Eosinophils % 0.1 %; Hematocrit 38.6 % (35.3-44.9); Hemoglobin 11.9 g/dL (11.5-15.4); Immature Granulocytes % 0.4 % (0-4); Lymphocytes # 0.5 K/mcL (0.6-4.6); Lymphocytes % 3.3 %; Mean Corpuscular HGB Conc 30.8 g/dL (31.6-35.5); Mean Corpuscular Hemoglobin 28.4 pg (28.0-33.3); Mean Corpuscular Volume 92.1 fL (83.0-100.0); Monocytes # 0.5 K/mcL (0.0-1.3); Monocytes % 3.4 %; Neutrophils # 14.6 K/mcL (1.6-8.9); Platelet Count 564 K/mcL (140-400); Red Blood Count 4.19 M/mcL (3.82-4.97); Red Cell Distribution Width 13.8 % (11.5-14.5); Segmented Neutrophils % 92.7 %; White Blood Count 15.7 K/mcL (4.3-11.1)
[2021-03-26] MEDS ORDERED: 0.9 % Sodium Chloride 500 ML IVC ONE (12:54)
[2021-03-26 13:11] LABS: BUN/Creatinine Ratio 39 (6-26); Blood Urea Nitrogen 18 mg/dL (8-23); Calcium 9.5 mg/dL (8.6-10.3); Carbon Dioxide 31 mEq/L (23-29); Chloride 96 mEq/L (98-107); Glucose 229 mg/dL (70-105); Osmolality,Calculated 299 (280-300); Potassium 4.7 mEq/L (3.5-5.1); Sodium 140 mEq/L (136-145); Troponin I < 0.03 ng/mL (< 0.04); eGFR For African Americans > 60 (> 60); eGFR For Non-African Americans > 60 (> 60)
[2021-03-26 13:32] LABS: VBG HCO3 34 mEq/L (21-27); VBG PCO2 65 mmHg (41-51); VBG PH 7.33 pH Units (7.32-7.42); VBG PO2 141 mmHg (25-50)
[2021-03-26] MEDS: cefTRIAXone 1,000 MG in Water for inj. (sterile) 10 ML IVP ONE ×2 (13:51→13:54)
[2021-03-26] MEDS ORDERED: Naloxone 0.4 MG/ML INJ IVP PRN (14:03)
[2021-03-26] MEDS ORDERED: Mag Hydrox/Al Hydrox/Simeth 30 ML UDC PO PRN (14:33)
[2021-03-26] MEDS ORDERED: Ondansetron ODT 4 MG TAB.RAPDIS SL PRN (14:33)
[2021-03-26] MEDS ORDERED: Melatonin 3 MG TABLET PO PRN (14:33)
[2021-03-26] MEDS ORDERED: Acetaminophen 325 MG TABLET PO PRN (14:33)
[2021-03-26] MEDS: Piperacillin/Tazobactam 3.375 GM in 0.9 % Sodium Chloride Mini Bag 100 ML IVPB ONE ×2 (15:24→17:12)
[2021-03-26] MEDS ORDERED: *HR* Dextrose 50 % in Water (Vial) 50 ML VIAL IVP PRN (15:26)
[2021-03-26] MEDS: Azithromycin 500 MG in 0.9 % Sodium Chloride 250 ML IVPB SCH (15:26)
[2021-03-26] MEDS ORDERED: D5% in Water 1,000 ML IVC PRN (15:26)
[2021-03-26] MEDS ORDERED: Dextrose Gel 15 GM/37.5 ML TUBE PO PRN ×2 (15:26)
[2021-03-26] MEDS ORDERED: GuaiFENesin Liq 200 MG/10 ML UDC PO PRN (15:37)
[2021-03-26] MEDS: Ipratropium Neb 0.5 MG NEBULIZER IH SCH ×3 (15:52→23:42)
[2021-03-26] MEDS: Levalbuterol Neb 1.25 MG/3 ML IH SCH ×2 (15:52→19:58)
[2021-03-26] MEDS: methylPREDNISolone 125 MG/2 ML VIAL IVP SCH (17:11)
[2021-03-26] MEDS: Insulin LISPRO 300 UNITS/3 ML VIAL SUBQ SCH ×2 (17:12→21:35)
[2021-03-26 18:41] LABS: Adenovirus Not Detected (Not Detect); Bordetella Pertussis Not Detected (Not Detect); Chlamydophila pneumoniae Not Detected (Not Detect); Coronavirus 229E Not Detected (Not Detect); Coronavirus HKU1 Not Detected (Not Detect); Coronavirus NL63 Not Detected (Not Detect); Coronavirus OC43 Not Detected (Not Detect); Human Metapneumovirus Not Detected (Not Detect); Human Rhinovirus/Enterovirus Not Detected (Not Detect); Influenza A Subtype 2009 H1 Not Detected (Not Detect); Influenza B Not Detected (Not Detect); Mycoplasma pneumoniae Not Detected (Not Detect); Parainfluenza Virus 1 Not Detected (Not Detect); Parainfluenza Virus 2 Not Detected (Not Detect); Parainfluenza Virus 3 Not Detected (Not Detect); Parainfluenza Virus 4 Not Detected (Not Detect); Respiratory Syncytial Virus Not Detected (Not Detect); SARS-CoV-2 Not Detected (Not Detect)
[2021-03-26] MEDS: Budesonide/Formoterol 160/4.5 1 PUFF INH IH SCH (19:58)
[2021-03-26] MEDS: Morphine Sulfate Oral CONC 10 MG/0.5 ML ORAL.SYG SL PRN (21:46)
[2021-03-26 22:25] LABS: Bilirubin,Urine Negative (Negative); Blood,Urine Large (Negative); Clarity,Urine Clear (Clear); Color,Urine Light-Yellow (Yellow); Glucose,Urine (UA) Normal (Normal); Ketones,Urine 40 mg/dL (Negative); Leukocyte Esterase,Urine Moderate (Negative); Mucus,Urine Few per lpf (None-Few); Nitrite,Urine Negative (Negative); Protein,Urine 30 mg/dL (Neg-Trace); RBC,Urine TNTC per hpf (0-3); Specific Gravity,Urine 1.022 (1.010-1.025); Squamous Epithelial Cell,Urine Few per hpf (None-Few); Urobilinogen,Urine Normal (Normal); WBC,Urine 15-30 per hpf (0-3)
[2021-03-27] MEDS: Piperacillin/Tazobactam 3.375 GM in 0.9 % Sodium Chloride Mini Bag 100 ML IVPB SCH ×4 (01:45→23:41)
[2021-03-27 01:52] LABS: Hematocrit 34.4 % (35.3-44.9); Hemoglobin 10.8 g/dL (11.5-15.4); Mean Corpuscular HGB Conc 31.4 g/dL (31.6-35.5); Mean Corpuscular Hemoglobin 28.8 pg (28.0-33.3); Mean Corpuscular Volume 91.7 fL (83.0-100.0); Mean Platelet Volume 9.2 fL (9.4-12.4); Platelet Count 473 K/mcL (140-400); Red Blood Count 3.75 M/mcL (3.82-4.97); Red Cell Distribution Width 13.7 % (11.5-14.5)
[2021-03-27 01:54] LABS: White Blood Count 6.6 K/mcL (4.3-11.1)
[2021-03-27 02:13] LABS: BUN/Creatinine Ratio 53 (6-26); Blood Urea Nitrogen 18 mg/dL (8-23); Calcium 9.1 mg/dL (8.6-10.3); Carbon Dioxide 30 mEq/L (23-29); Chloride 100 mEq/L (98-107); Glucose 161 mg/dL (70-105); Osmolality,Calculated 297 (280-300); Potassium 4.4 mEq/L (3.5-5.1); Sodium 141 mEq/L (136-145); eGFR For African Americans > 60 (> 60); eGFR For Non-African Americans > 60 (> 60)
[2021-03-27] MEDS: Levalbuterol Neb 1.25 MG/3 ML IH SCH ×4 (03:50→19:53)
[2021-03-27] MEDS: Ipratropium Neb 0.5 MG NEBULIZER IH SCH ×5 (03:50→19:53)
[2021-03-27] MEDS: Morphine Sulfate Oral CONC 10 MG/0.5 ML ORAL.SYG SL PRN ×3 (04:22→21:29)
[2021-03-27] MEDS: methylPREDNISolone 125 MG/2 ML VIAL IVP SCH ×2 (06:15→16:45)
[2021-03-27] MEDS: Budesonide/Formoterol 160/4.5 1 PUFF INH IH SCH ×2 (07:26→19:55)
[2021-03-27] MEDS: Cyanocobalamin (B-12) 1,000 MCG TABLET PO SCH (07:50)
[2021-03-27] MEDS: Insulin LISPRO 300 UNITS/3 ML VIAL SUBQ SCH ×4 (07:51→21:18)
[2021-03-27] MEDS: Aspirin Enteric Coated 81 MG Tablet PO SCH (07:52)
[2021-03-27] MEDS: Azithromycin 500 MG in 0.9 % Sodium Chloride 250 ML IVPB SCH (15:11)
[2021-03-28] MEDS: Ipratropium Neb 0.5 MG NEBULIZER IH SCH ×7 (00:03→23:38)
[2021-03-28 01:21] LABS: Hematocrit 35.4 % (35.3-44.9); Hemoglobin 11.4 g/dL (11.5-15.4); Mean Corpuscular HGB Conc 32.2 g/dL (31.6-35.5); Mean Corpuscular Hemoglobin 29.5 pg (28.0-33.3); Mean Corpuscular Volume 91.7 fL (83.0-100.0); Mean Platelet Volume 9.8 fL (9.4-12.4); Platelet Count 506 K/mcL (140-400); Red Blood Count 3.86 M/mcL (3.82-4.97); Red Cell Distribution Width 13.9 % (11.5-14.5)
[2021-03-28 01:38] LABS: BUN/Creatinine Ratio 43 (6-26); Blood Urea Nitrogen 23 mg/dL (8-23); Calcium 9.3 mg/dL (8.6-10.3); Carbon Dioxide 31 mEq/L (23-29); Chloride 100 mEq/L (98-107); Glucose 183 mg/dL (70-105); Osmolality,Calculated 300 (280-300); Potassium 4.6 mEq/L (3.5-5.1); Sodium 141 mEq/L (136-145); eGFR For African Americans > 60 (> 60); eGFR For Non-African Americans > 60 (> 60)
[2021-03-28] MEDS: Levalbuterol Neb 1.25 MG/3 ML IH SCH ×4 (02:57→19:17)
[2021-03-28] MEDS: methylPREDNISolone 125 MG/2 ML VIAL IVP SCH (04:52)
[2021-03-28] MEDS: Budesonide/Formoterol 160/4.5 1 PUFF INH IH SCH ×2 (07:13→19:21)
[2021-03-28] MEDS: Piperacillin/Tazobactam 3.375 GM in 0.9 % Sodium Chloride Mini Bag 100 ML IVPB SCH ×3 (08:33→23:25)
[2021-03-28] MEDS: *HR* Acetylcysteine 20% 600 MG/3 ML ORAL SYRINGE PO SCH (08:34)
[2021-03-28] MEDS: Morphine Sulfate Oral CONC 10 MG/0.5 ML ORAL.SYG SL PRN ×3 (08:34→21:24)
[2021-03-28] MEDS: Insulin LISPRO 300 UNITS/3 ML VIAL SUBQ SCH ×4 (08:35→20:32)
[2021-03-28] MEDS: Cyanocobalamin (B-12) 1,000 MCG TABLET PO SCH (08:35)
[2021-03-28] MEDS: Aspirin Enteric Coated 81 MG Tablet PO SCH (08:38)
[2021-03-28] MEDS ORDERED: Isovue-370 500 ML BOTTLE IVP ONE (10:54)
[2021-03-28] MEDS: Azithromycin 500 MG in 0.9 % Sodium Chloride 250 ML IVPB SCH (15:34)
[2021-03-29] MEDS: Ipratropium Neb 0.5 MG NEBULIZER IH SCH ×6 (03:32→22:57)
[2021-03-29] MEDS: Levalbuterol Neb 1.25 MG/3 ML IH SCH ×4 (03:32→22:57)
[2021-03-29] MEDS: Aspirin Enteric Coated 81 MG Tablet PO SCH (06:43)
[2021-03-29 07:14] LABS: Hematocrit 36.1 % (35.3-44.9); Hemoglobin 11.2 g/dL (11.5-15.4); Mean Corpuscular Hemoglobin 28.4 pg (28.0-33.3); Mean Corpuscular Volume 91.6 fL (83.0-100.0); Mean Platelet Volume 9.2 fL (9.4-12.4); Platelet Count 458 K/mcL (140-400); Red Blood Count 3.94 M/mcL (3.82-4.97); Red Cell Distribution Width 13.6 % (11.5-14.5); White Blood Count 8.6 K/mcL (4.3-11.1)
[2021-03-29] MEDS: Budesonide/Formoterol 160/4.5 1 PUFF INH IH SCH ×2 (07:28→19:35)
[2021-03-29 07:37] LABS: BUN/Creatinine Ratio 28 (6-26); Blood Urea Nitrogen 14 mg/dL (8-23); Calcium 9.1 mg/dL (8.6-10.3); Carbon Dioxide 38 mEq/L (23-29); Chloride 100 mEq/L (98-107); Glucose 78 mg/dL (70-105); Osmolality,Calculated 295 (280-300); Potassium 3.8 mEq/L (3.5-5.1); Sodium 143 mEq/L (136-145); eGFR For African Americans > 60 (> 60); eGFR For Non-African Americans > 60 (> 60)
[2021-03-29] MEDS: Piperacillin/Tazobactam 3.375 GM in 0.9 % Sodium Chloride Mini Bag 100 ML IVPB SCH ×2 (07:51→14:59)
[2021-03-29] MEDS: Cyanocobalamin (B-12) 1,000 MCG TABLET PO SCH (07:57)
[2021-03-29] MEDS: predniSONE 20 MG TABLET PO SCH (07:58)
[2021-03-29] MEDS: *HR* Acetylcysteine 20% 600 MG/3 ML ORAL SYRINGE PO SCH (08:06)
[2021-03-29] MEDS: Insulin LISPRO 300 UNITS/3 ML VIAL SUBQ SCH ×4 (08:44→19:58)
[2021-03-29] MEDS: Morphine Sulfate Oral CONC 10 MG/0.5 ML ORAL.SYG SL PRN ×3 (10:50→20:07)
[2021-03-30] MEDS: Piperacillin/Tazobactam 3.375 GM in 0.9 % Sodium Chloride Mini Bag 100 ML IVPB SCH ×3 (00:26→17:29)
[2021-03-30] MEDS: Morphine Sulfate Oral CONC 10 MG/0.5 ML ORAL.SYG SL PRN ×5 (00:35→21:32)
[2021-03-30 03:24] LABS: Hematocrit 35.2 % (35.3-44.9); Hemoglobin 10.7 g/dL (11.5-15.4); Mean Corpuscular HGB Conc 30.4 g/dL (31.6-35.5); Mean Corpuscular Hemoglobin 27.8 pg (28.0-33.3); Mean Corpuscular Volume 91.4 fL (83.0-100.0); Mean Platelet Volume 8.9 fL (9.4-12.4); Platelet Count 418 K/mcL (140-400); Red Blood Count 3.85 M/mcL (3.82-4.97); Red Cell Distribution Width 13.8 % (11.5-14.5); White Blood Count 6.4 K/mcL (4.3-11.1)
[2021-03-30] MEDS: Levalbuterol Neb 1.25 MG/3 ML IH SCH ×4 (03:26→19:48)
[2021-03-30] MEDS: Ipratropium Neb 0.5 MG NEBULIZER IH SCH ×6 (03:27→22:53)
[2021-03-30 03:36] LABS: BUN/Creatinine Ratio 51 (6-26); Blood Urea Nitrogen 19 mg/dL (8-23); Calcium 8.8 mg/dL (8.6-10.3); Carbon Dioxide 38 mEq/L (23-29); Chloride 99 mEq/L (98-107); Glucose 102 mg/dL (70-105); Osmolality,Calculated 296 (280-300); Potassium 3.5 mEq/L (3.5-5.1); Sodium 142 mEq/L (136-145); eGFR For African Americans > 60 (> 60); eGFR For Non-African Americans > 60 (> 60)
[2021-03-30] MEDS: Budesonide/Formoterol 160/4.5 1 PUFF INH IH SCH ×2 (07:20→19:48)
[2021-03-30] MEDS: Cyanocobalamin (B-12) 1,000 MCG TABLET PO SCH (08:48)
[2021-03-30] MEDS: predniSONE 20 MG TABLET PO SCH (08:48)
[2021-03-30] MEDS: Aspirin Enteric Coated 81 MG Tablet PO SCH (08:48)
[2021-03-30] MEDS: Insulin LISPRO 300 UNITS/3 ML VIAL SUBQ SCH ×4 (08:49→20:47)
[2021-03-30] MEDS: *HR* Acetylcysteine 20% 600 MG/3 ML ORAL SYRINGE PO SCH (08:49)
[2021-03-31] MEDS: Morphine Sulfate Oral CONC 10 MG/0.5 ML ORAL.SYG SL PRN ×5 (01:35→22:06)
[2021-03-31] MEDS: Piperacillin/Tazobactam 3.375 GM in 0.9 % Sodium Chloride Mini Bag 100 ML IVPB SCH (01:42)
[2021-03-31] MEDS: Ipratropium Neb 0.5 MG NEBULIZER IH SCH ×6 (04:25→23:36)
[2021-03-31] MEDS: Levalbuterol Neb 1.25 MG/3 ML IH SCH ×4 (04:25→23:37)
[2021-03-31] MEDS: Budesonide/Formoterol 160/4.5 1 PUFF INH IH SCH ×2 (07:19→19:09)
[2021-03-31] MEDS: Insulin LISPRO 300 UNITS/3 ML VIAL SUBQ SCH ×4 (07:30→22:06)
[2021-03-31] MEDS: Aspirin Enteric Coated 81 MG Tablet PO SCH (09:57)
[2021-03-31] MEDS: Cyanocobalamin (B-12) 1,000 MCG TABLET PO SCH (09:57)
[2021-03-31] MEDS: *HR* Acetylcysteine 20% 600 MG/3 ML ORAL SYRINGE PO SCH (09:57)
[2021-04-01] MEDS: Morphine Sulfate Oral CONC 10 MG/0.5 ML ORAL.SYG SL PRN ×3 (03:24→13:43)
[2021-04-01] MEDS: Ipratropium Neb 0.5 MG NEBULIZER IH SCH ×3 (03:40→11:12)
[2021-04-01] MEDS: Levalbuterol Neb 1.25 MG/3 ML IH SCH ×2 (03:40→07:12)
[2021-04-01] MEDS: Budesonide/Formoterol 160/4.5 1 PUFF INH IH SCH (07:12)
[2021-04-01 07:54] VITALS: BP 104/73; PULSE 138; TEMP 98.6
[2021-04-01] MEDS: Cyanocobalamin (B-12) 1,000 MCG TABLET PO SCH (08:14)
[2021-04-01] MEDS: *HR* Acetylcysteine 20% 600 MG/3 ML ORAL SYRINGE PO SCH (08:15)
[2021-04-01] MEDS: Insulin LISPRO 300 UNITS/3 ML VIAL SUBQ SCH ×2 (08:16→12:13)
[2021-04-01] MEDS: Aspirin Enteric Coated 81 MG Tablet PO SCH (08:17)
[2021-04-01 11:14] VITALS: O2SAT 95
== END 2021-04-01 14:27 | disposition hospice, home (50) | DRG 871 ==
LOC: 2NENU 12:16 → EMEROOARM 12:16 → SUATTDRO 14:23 → 2NENU 15:10
PROVIDERS: ADMIT Family Medicine; ATTEND Family Medicine